=== PATIENT | male | born 1940 | race Asian ===

== ENCOUNTER 2023-10-22 12:22 | Inpatient (IN) | payer OTHER ==
[~2023-10-22] VITALS: Ht 172.7 cm; Wt 70.3 kg
[2023-10-22 21:41] VITALS: BP 131/72; TEMP 97.8; O2SAT 96
[2023-10-22] MEDS ORDERED: OLME40TA12 PO (22:24)
[2023-10-22] MEDS ORDERED: GLIM4TAB37 PO (22:24)
[2023-10-22] MEDS ORDERED: SENN-301 PO (22:24)
[2023-10-22] MEDS ORDERED: [UNRECOGNIZED DRUG - CODE] PO (22:24)
[2023-10-22] MEDS ORDERED: POLY250017 PO (22:24)
[2023-10-22] MEDS ORDERED: CANA100T PO (22:24)
[2023-10-22] MEDS ORDERED: ASPI81TA31 PO (22:24)
[2023-10-22] MEDS ORDERED: CLOP75TA33 PO (22:24)
[2023-10-22] MEDS ORDERED: ATOR80TA PO (22:24)
[2023-10-22] MEDS ORDERED: PANT40TA49 PO (22:24)
[2023-10-22] MEDS ORDERED: SITA1TBM7 PO (22:24)
[2023-10-23 04:50] VITALS: BP 137/67; TEMP 97.9; O2SAT 94
[2023-10-23 16:00] VITALS: BP 142/67; TEMP 98.3; O2SAT 96
[2023-10-23] MEDS ORDERED: SENN-261 PO (16:03)
[2023-10-23] MEDS ORDERED: SITA1TAB2 PO (16:05)
[2023-10-23] MEDS: NUTRISOURCE FIBER 4 GM PACKET PO SCH (17:00)
[2023-10-23 20:16] VITALS: BP 125/89; TEMP 97.4; O2SAT 93
[2023-10-24 04:42] VITALS: BP 146/79; TEMP 98.1; O2SAT 96
[2023-10-24] MEDS: REMEDY ESSENTIAL ZINC PASTE 113 GM TOP PRN (08:46)
[2023-10-24] MEDS: MUPIROCIN 2% OINT 22 GM TUBE NS SCH (15:05)
[2023-10-24 16:13] VITALS: BP 127/60; TEMP 97.6; O2SAT 99
[2023-10-24 20:00] VITALS: BP 125/74; TEMP 98.5; O2SAT 95
[2023-10-24] MEDS ORDERED: DEXTROSE 50% 50 ML DISP.SYRIN IV PRN (21:30)
[2023-10-24] MEDS: BLOOD SUGAR DIAGNOSTIC 1 EACH STRIP VI SCH (22:22)
[2023-10-24] MEDS: CLOPIDOGREL 75 MG TABLET PO SCH (23:53)
[2023-10-24] MEDS: ATORVASTATIN 40 MG TABLET PO SCH (23:55)
[2023-10-25 06:00] VITALS: BP 112/65; TEMP 97.8; O2SAT 93
[2023-10-25 08:06] LABS: BASOPHILS # (AUTO) 0.1 K/UL (0.0-0.2); BASOPHILS % (AUTO) 0.7 % (0.0-2.0); EOSINOPHILS # (AUTO) 0.2 K/uL (0.0-0.7); EOSINOPHILS % (AUTO) 2.6 % (0.0-7.0); HEMATOCRIT 42.1 % (36.7-47.1); HEMOGLOBIN 14.4 g/dL (12.5-16.3); LYMPHOCYTES # (AUTO) 2.6 K/uL (0.8-4.8); MEAN CORPUSCULAR HEMOGLOBIN 28.5 uug (23.8-33.4); MEAN CORPUSCULAR HGB CONC 34 g/dL (32.5-36.3); MEAN CORPUSCULAR VOLUME 83.1 fL (73.0-96.2); MONOCYTES # (AUTO) 0.9 K/uL (0.1-1.30); MONOCYTES % (AUTO) 12.3 % (0.0-11.0); NEUTROPHILS # (AUTO) 3.8 K/uL (1.8-8.9); NEUTROPHILS % (AUTO) 50.4 % (38.5-71.5); PLATELET COUNT (AUTO) 230 K/uL (152-348); RED BLOOD CELL COUNT(AUTO) 5.06 MIL/uL (4.06-5.63); WHITE BLOOD COUNT (AUTO) 7.5 K/uL (3.6-10.2)
[2023-10-25 08:30] LABS: DIFFERENTIAL COMMENT 1
[2023-10-25] MEDS: ASPIRIN EC 81 MG TABLET.DR PO SCH (08:40)
[2023-10-25 08:42] LABS: THYROID STIMULATING HORMONE 2.783 mIU/mL (0.358-3.740)
[2023-10-25 08:49] LABS: IRON, SERUM 84 ug/dL (50-175)
[2023-10-25 09:04] LABS: ALANINE AMINOTRANSFERASE 35 U/L (16-63); ALBUMIN 3.4 g/dL (3.4-5.0); ALKALINE PHOSPHATASE 49 U/L (50-136); ASPARTATE AMINOTRANSFERASE 20 U/L (15-37); BILIRUBIN,TOTAL 0.6 mg/dL (0.2-1.0); CALCIUM 9.9 mg/dL (8.5-10.1); CARBON DIOXIDE 27 mmol/L (21-32); CHLORIDE 104 mmol/L (98-107); CHOLESTEROL 130 mg/dL (<200); GLUCOSE 105 mg/dL (74-106); HDL CHOLESTEROL 38 mg/dL (40-60); MAGNESIUM 2.1 mg/dL (1.8-2.4); PHOSPHOROUS 4.3 mg/dL (2.5-4.9); POTASSIUM 3.7 mmol/L (3.5-5.1); SODIUM SERUM 140 mmol/L (136-145); TOTAL PROTEIN, SERUM 6.7 g/dL (6.4-8.2); TRIGLYCERIDES 130 MG/DL (30-150); UREA NITROGEN, BLOOD 34 mg/dL (7-18)
[2023-10-25] MEDS ORDERED: SENNOSIDES 1 TABLET PO PRN (10:45)
[2023-10-25] MEDS ORDERED: MIRALAX 17 GM POWD.PACK PO PRN (10:45)
[2023-10-25] MEDS ORDERED: Medication Not On Formulary EA (Olmesartan Medoxomil (Benicar) 40 MG) PO SCH (10:45)
[2023-10-25] MEDS: GLIMEPIRIDE 4 MG TABLET PO SCH (11:23)
[2023-10-25] MEDS: PANTOPRAZOLE SODIUM 40 MG TABLET.DR PO SCH (11:23)
[2023-10-25 12:00] VITALS: BP 126/61; TEMP 97.8; O2SAT 95
[2023-10-25] MEDS: LINAGLIPTIN 5 MG TABLET PO SCH (12:15)
[2023-10-25] MEDS: LOSARTAN POTASSIUM 50 MG TABLET PO SCH (12:16)
[2023-10-25] MEDS: INSULIN REGULAR, HUMAN 300 UNIT/3 ML VIAL SQ PRN (12:21)
[2023-10-25 16:46] VITALS: BP 102/52; TEMP 97.9; O2SAT 93
[2023-10-25 20:00] VITALS: BP 148/66; TEMP 98.1; O2SAT 95
[2023-10-25] MEDS ORDERED: Medication Not On Formulary EA (Atorvastatin Calcium (Lipitor) 80 MG) PO SCH (21:00)
[2023-10-26 05:36] VITALS: BP 105/65; TEMP 97.6; O2SAT 96
[2023-10-26] MEDS: NIACIN 100 MG PO SCH (08:50)
[2023-10-26] MEDS: METFORMIN XR 500 MG TAB.SR.24H PO SCH (08:50)
[2023-10-26] MEDS ORDERED: ASPIRIN 81 MG TAB.CHEW PO SCH (09:00)
[2023-10-26] MEDS ORDERED: CLOPIDOGREL 75 MG TABLET PO SCH (09:00)
[2023-10-26 15:44] VITALS: BP 125/61; TEMP 98.1; O2SAT 98
[2023-10-26 21:51] VITALS: BP 111/57; TEMP 98.2; O2SAT 100
[2023-10-26 21:52] VITALS: BP 97/54; TEMP 97.8; O2SAT 100
[2023-10-27 05:43] VITALS: BP 110/56; TEMP 98.2; O2SAT 100
[2023-10-27 08:00] VITALS: BP 123/58; TEMP 97; O2SAT 98
[2023-10-27] MEDS: GLUCERNA SHAKE 237 ML CAN PO SCH (08:33)
[2023-10-27 16:06] VITALS: BP 117/68; TEMP 97.6; O2SAT 97
[2023-10-27 20:15] VITALS: BP 108/62; TEMP 97.8; O2SAT 95
[2023-10-28 04:20] VITALS: BP 116/59; TEMP 97.9; O2SAT 94
[2023-10-28 16:04] VITALS: BP 110/59; TEMP 97.4; O2SAT 94
[2023-10-28 20:26] VITALS: BP 144/71; TEMP 97.5; O2SAT 95
[2023-10-29 05:10] VITALS: BP 113/62; TEMP 97.7; O2SAT 95
[2023-10-29 09:05] VITALS: BP 138/70; TEMP 97.5; O2SAT 96
[2023-10-29 16:00] VITALS: BP 138/76; TEMP 97.6; O2SAT 97
[2023-10-29 20:00] VITALS: BP 120/65; TEMP 98.6; O2SAT 96
[2023-10-30 06:00] VITALS: BP 136/69; TEMP 97.4; O2SAT 93
[2023-10-30 16:03] VITALS: BP 121/69; TEMP 99; O2SAT 96
[2023-10-30 21:24] VITALS: BP 114/57; TEMP 97.8; O2SAT 99
[2023-10-31 06:11] VITALS: BP 137/58; TEMP 98.2; O2SAT 100
[2023-10-31 12:00] VITALS: BP 121/71; TEMP 98.2; O2SAT 97
[2023-10-31 16:01] VITALS: BP 132/52; TEMP 97.6; O2SAT 97
[2023-10-31 22:49] VITALS: BP 145/80; TEMP 98.2; O2SAT 94
[2023-11-01 05:35] VITALS: BP 121/58; TEMP 98.2; O2SAT 100
[2023-11-01 15:39] VITALS: BP 122/60; TEMP 98; O2SAT 98
[2023-11-01 22:29] VITALS: BP 146/74; TEMP 98.2; O2SAT 99
[2023-11-02 04:12] VITALS: BP 128/68; TEMP 98.2; O2SAT 99
[2023-11-02 16:00] VITALS: BP 123/73; TEMP 97.8; O2SAT 98
[2023-11-02 20:29] VITALS: BP 133/65; TEMP 97.7; O2SAT 96
[2023-11-03 06:02] VITALS: BP 133/60; TEMP 98.3; O2SAT 97
[2023-11-03 08:26] VITALS: BP 149/91; TEMP 97.3; O2SAT 98
[2023-11-03] MEDS: INSULIN REGULAR, HUMAN 300 UNIT/3 ML VIAL SQ PRN (12:05)
[2023-11-03] MEDS: METFORMIN XR 500 MG TAB.SR.24H PO SCH (19:03)
[2023-11-03 19:35] VITALS: BP 145/72; TEMP 97.8; O2SAT 95
[2023-11-04 04:35] VITALS: BP 128/63; TEMP 97.8; O2SAT 95
[2023-11-04 09:00] VITALS: BP 119/73; TEMP 97.9; O2SAT 97
[2023-11-04 16:42] VITALS: BP 125/59; TEMP 98.3; O2SAT 96
[2023-11-04 20:08] VITALS: TEMP 97.7; O2SAT 95
[2023-11-05 20:00] VITALS: BP 115/60; TEMP 97.4; O2SAT 100
[2023-11-06 06:00] VITALS: BP 131/68; TEMP 97.4; O2SAT 97
[2023-11-06 12:00] VITALS: BP 149/88; TEMP 97.7; O2SAT 96
[2023-11-06 16:04] VITALS: BP 107/62; TEMP 97.6; O2SAT 97
[2023-11-06 20:00] VITALS: BP 119/70; TEMP 97.8; O2SAT 100
[2023-11-07 06:00] VITALS: BP 122/57; TEMP 97.7; O2SAT 96
[2023-11-07 15:35] VITALS: BP 114/61; TEMP 99; O2SAT 100
[2023-11-07 21:00] VITALS: BP 111/54; TEMP 98; O2SAT 95
[2023-11-08 06:00] VITALS: BP 139/77; TEMP 98; O2SAT 98
[2023-11-08 08:00] VITALS: BP 131/73; TEMP 97.7; O2SAT 99
[2023-11-08 15:36] VITALS: BP 115/65; TEMP 97.5; O2SAT 98
[2023-11-08 21:34] VITALS: BP 139/69; TEMP 98.5; O2SAT 94
[2023-11-09 04:24] VITALS: BP 134/70; TEMP 97.8; O2SAT 96
[2023-11-09 16:36] VITALS: BP 139/76; TEMP 98.2; O2SAT 96
[2023-11-09 20:10] VITALS: BP 135/75; TEMP 97.8; O2SAT 97
[2023-11-10 04:58] VITALS: BP 139/73; TEMP 97; O2SAT 97
[2023-11-10 12:00] VITALS: BP 147/94; TEMP 98.2; O2SAT 97
[2023-11-10 20:07] VITALS: BP 151/83; TEMP 97.8; O2SAT 98
[2023-11-11 11:01] VITALS: BP 115/70; TEMP 97.8; O2SAT 98
[2023-11-11 16:15] VITALS: BP 126/68; TEMP 97.6; O2SAT 100
[2023-11-12 08:00] VITALS: BP 114/75; TEMP 97.7; O2SAT 97
[2023-11-13 15:59] VITALS: BP 133/76; TEMP 97.5; O2SAT 98
[2023-11-13 21:40] VITALS: BP 126/70; TEMP 98.6; O2SAT 99
[2023-11-14] MEDS: ACETAMINOPHEN 325 MG TABLET PO PRN (06:16)
[2023-11-14 15:58] VITALS: BP 136/67; TEMP 98.6; O2SAT 97
[2023-11-14 20:15] VITALS: BP 143/62; TEMP 98.2; O2SAT 98
[2023-11-15 20:00] VITALS: BP 112/61; TEMP 97.9; O2SAT 96
[2023-11-16 09:41] VITALS: BP_SYST 129; BP_SYST 143; BP_DIAS 74; BP_DIAS 85; TEMP 97.3; TEMP 97.8; O2SAT 100; O2SAT 95
[2023-11-16 15:40] VITALS: BP 136/79; TEMP 98.2; O2SAT 96
[2023-11-17 08:25] VITALS: BP 125/82; TEMP 98.1; O2SAT 98
[2023-11-17 16:26] VITALS: BP_SYST 125; BP_SYST 128; BP_DIAS 82; BP_DIAS 85; TEMP 98.1; TEMP 98.3; O2SAT 98
[2023-11-18 03:13] VITALS: BP 134/74; TEMP 98; O2SAT 95
[2023-11-18 11:12] VITALS: BP 130/65; TEMP 98.2; O2SAT 96
[2023-11-18 15:49] VITALS: BP 104/64; TEMP 97.2; O2SAT 96
[2023-11-19 07:43] LABS: BASOPHILS # (AUTO) 0.1 K/UL (0.0-0.2); BASOPHILS % (AUTO) 0.4 % (0.0-2.0); EOSINOPHILS # (AUTO) 0.1 K/uL (0.0-0.7); EOSINOPHILS % (AUTO) 1.2 % (0.0-7.0); HEMATOCRIT 38.6 % (36.7-47.1); HEMOGLOBIN 13.2 g/dL (12.5-16.3); LYMPHOCYTES # (AUTO) 2.6 K/uL (0.8-4.8); MEAN CORPUSCULAR HEMOGLOBIN 27.5 uug (23.8-33.4); MEAN CORPUSCULAR HGB CONC 34 g/dL (32.5-36.3); MEAN CORPUSCULAR VOLUME 80.2 fL (73.0-96.2); MONOCYTES # (AUTO) 1.2 K/uL (0.1-1.30); MONOCYTES % (AUTO) 9.4 % (0.0-11.0); NEUTROPHILS # (AUTO) 8.4 K/uL (1.8-8.9); PLATELET COUNT (AUTO) 221 K/uL (152-348); RED BLOOD CELL COUNT(AUTO) 4.81 MIL/uL (4.06-5.63); RED CELL DISTRIBUTION WIDTH 13.1 % (12.1-16.2); WHITE BLOOD COUNT (AUTO) 12.3 K/uL (3.6-10.2)
[2023-11-19 07:48] LABS: DIFFERENTIAL COMMENT 1
[2023-11-19 07:57] LABS: ALANINE AMINOTRANSFERASE 40 U/L (16-63); ALBUMIN 3.3 g/dL (3.4-5.0); ALKALINE PHOSPHATASE 63 U/L (50-136); ASPARTATE AMINOTRANSFERASE 17 U/L (15-37); BILIRUBIN,TOTAL 0.4 mg/dL (0.2-1.0); CARBON DIOXIDE 27 mmol/L (21-32); CHLORIDE 100 mmol/L (98-107); CREATININE 0.8 mg/dL (0.6-1.3); GLUCOSE 129 mg/dL (74-106); PHOSPHOROUS 2.9 mg/dL (2.5-4.9); SODIUM SERUM 134 mmol/L (136-145); TOTAL PROTEIN, SERUM 6.1 g/dL (6.4-8.2); UREA NITROGEN, BLOOD 26 mg/dL (7-18)
[2023-11-19 07:59] LABS: MAGNESIUM 1.2 mg/dL (1.8-2.4)
[2023-11-19] MEDS: MAGNESIUM OXIDE 400 MG TABLET PO ONE (11:03)
[2023-11-19 12:01] VITALS: BP 122/64; TEMP 97.5; O2SAT 93
[2023-11-19 16:00] VITALS: BP 143/74; TEMP 97.9; O2SAT 96
[2023-11-19 19:30] VITALS: BP 139/73; TEMP 97.8; O2SAT 97
[2023-11-20 12:38] VITALS: BP 131/75
[2023-11-20 16:09] VITALS: BP 116/50; TEMP 97.8; O2SAT 97
[2023-11-20 20:00] VITALS: BP 136/60; TEMP 98.2
[2023-11-21 07:42] VITALS: BP 132/75; TEMP 98.4; O2SAT 99
[2023-11-21 14:54] VITALS: BP 130/75; TEMP 98.2; O2SAT 99
[2023-11-21 22:16] VITALS: BP 154/89; TEMP 98; O2SAT 97
[2023-11-23 08:45] VITALS: BP 138/71; TEMP 98.7; O2SAT 97
[2023-11-23 20:00] VITALS: BP 123/53; TEMP 98.1; O2SAT 95
[2023-11-24 12:00] VITALS: BP 134/71; TEMP 97.5; O2SAT 99
[2023-11-25 15:30] VITALS: BP 103/52; TEMP 97.9; O2SAT 98
[2023-11-25 20:33] VITALS: BP 149/77; TEMP 98.2; O2SAT 95
[2023-11-26 10:29] VITALS: BP 142/68; TEMP 97.8; O2SAT 96
[2023-11-26 10:34] VITALS: BP 110/68; TEMP 97.7; O2SAT 95
[2023-11-26 16:22] VITALS: BP 139/76; TEMP 97.6; O2SAT 97
[2023-11-26 20:00] VITALS: BP 148/73; TEMP 97.7; O2SAT 95
[2023-11-27 08:58] VITALS: BP 107/63
== END 2023-11-27 15:05 | disposition home health service (06) | DRG 57 ==
PROVIDERS: ADMIT Physical Medicine & Rehabilitation Pain Medicine; ATTEND Physical Medicine & Rehabilitation Pain Medicine
DX: I69.354 Hemiplegia and hemiparesis following cerebral infarction affecting left non-dominant side (principal); D68.59 Other primary thrombophilia; I10 Essential (primary) hypertension; I69.322 Dysarthria following cerebral infarction; I69.392 Facial weakness following cerebral infarction; E78.5 Hyperlipidemia, unspecified; K21.9 Gastro-esophageal reflux disease without esophagitis; I65.29 Occlusion and stenosis of unspecified carotid artery; E11.65 Type 2 diabetes mellitus with hyperglycemia; I34.0 Nonrheumatic mitral (valve) insufficiency
CPT/HCPCS: 36415; 83550; 83735; 83921; 84100; 84443; 85025; 97535-GO-CO; A4663; A6213; G0283-GO; J1815